=== PATIENT | male | born 1990 | race Two or more races ===

== ENCOUNTER 2023-05-19 10:58 | Day surgery (SDC) | payer OTHER ==
[2023-05-17 11:56] LABS: HEMATOCRIT 43.7 % (39.0-48.0); HEMOGLOBIN 15.4 g/dL (13-16.00); MEAN CELL VOLUME 90.8 fL (80.0-100.00); MEAN CORPUSCULAR HEMOGLOBIN 32.1 pg (27.00-32.0); MEAN CORPUSCULAR HGB CONC 35.3 g/dl (32.0-36.0); PLATELET COUNT 263 K/uL (150-450); RED BLOOD COUNT 4.81 M/uL (4.00-6.00); RED CELL DISTRIBUTION WIDTH 12.6 % (11.5-14.5)
[2023-05-17 12:20] LABS: INR 1.04; PARTIAL THROMBOPLASTIN TIME 25.9 SECONDS (22.0-34.0); PROTHROMBIN TIME 10.9 SECONDS (9.0-11.5)
[2023-05-17 12:23] LABS: ALBUMIN 4.3 gm/dL (3.4-5.0); BILIRUBIN TOTAL 1.1 mg/dL (0.3-1.2); CALCIUM 9.8 mg/dL (8.5-10.1); CREATININE SERUM 0.93 mg/dL (0.70-1.30); GFR 93.57; GLOBULINA 3.5 G/DL (2.4-3.5); POTASSIUM 4.48 mEq/L (3.5-5.1); TOTAL PROTEIN 7.8 gm/dL (6.4-8.2)
[2023-05-17 13:56] LABS: PH,URINE 6.5 (5.0-8.0); URINE APPEARANCE Clear; URINE BILIRRUBIN Negative (NEGATIVE); URINE BLOOD Negative; URINE COLOR Yellow; URINE GLUCOSE Negative (NEGATIVE); URINE LEUKOCYTE Negative; URINE NITRATE Negative; URINE PROTEIN Negative (NEGATIVE)
[2023-05-17 14:00] LABS: URINE WBC 2.2 uL (0.0-23.2)
[2023-05-17 14:03] LABS: URINE BACTERIA 1.2 uL (0.0-1933); URINE RBC 1.4 uL (0.0-20.8)
[2023-05-19] MEDS ORDERED: TYLENOL ARTHRI650 MG PO (15:36)
[2023-05-19] MEDS ORDERED: MIRALAX17 GM PO (15:36)
[2023-05-19] MEDS ORDERED: TRAMADOL HCL50 MG PO (15:36)
[2023-05-19] MEDS ORDERED: KETO10TA2 PO (15:36)
== END 2023-05-19 21:50 | disposition home or self-care (01) ==
LOC: CIR.AMB 10:58
PROVIDERS: ATTEND Surgery
DX: K40.90 Unilateral inguinal hernia, without obstruction or gangrene, not specified as recurrent (principal); K42.9 Umbilical hernia without obstruction or gangrene; I10 Essential (primary) hypertension; Z20.822 Contact with and (suspected) exposure to COVID-19
CPT/HCPCS: 49650; 49592; C1781